=== PATIENT | female | born 1980 | race Caucasian/White ===

== ENCOUNTER 2022-09-20 15:18 | Outpatient (OUT) | payer BC, SELFPAY ==
--- NOTE | 2022-09-20 15:36 | XR_ITS ---
The [address] [address] Patient Name: ALFREDO WHALEY MRN: [id number] date: 1980 Sex: F Assigned Patient Location: [facility] Current Patient Location: [facility] Accession/Order Number: [id number] Exam Date: 09/20/2022 15:40 Report Date: 09/20/2022 16:52 At the request of: LUCY CARTER Procedure: XR shoulder RT min 2V PROCEDURE: XR shoulder RT min 2V HISTORY: Shoulder impingement M75.40 ; acute right shoulder pain for 2-3 weeks; no known injury COMPARISON: None. FINDINGS: BONES:No fracture, acute abnormality, or significant arthropathy. SOFT TISSUES:No visible soft tissue swelling. EFFUSION:None visible. OTHER: Negative. IMPRESSION: 1. No acute bone abnormality or significant degenerative changes. Electronically authenticated by: SANDRA CADET Date: 09/20/2022 16:52
== END 2022-09-20 15:19 ==
LOC: RAD 15:19
PROVIDERS: PCP Family Medicine; Visit Provider Family Medicine
DX: M75.41 Impingement syndrome of right shoulder (principal)
CPT/HCPCS: 73030

== ENCOUNTER 2022-09-25 16:14 | Outpatient (RCR) | payer BC, SELFPAY | END 2022-11-14 15:32 | disposition home or self-care (01) | LOC: PT 16:14 | PROVIDERS: PCP Family Medicine; Visit Provider Family Medicine | DX: M75.40 Impingement syndrome of unspecified shoulder (principal) | CPT/HCPCS: 97010; 97014; 97110; 97112; 97162; G0283 ==

== ENCOUNTER 2023-04-15 07:43 | Day surgery (SDC) | payer BC, SELFPAY ==
--- NOTE | 2023-04-15 07:49 | MR_ITS ---
[place] [id number] Patient Name: ALFREDO WHALEY MRN: [id number] date: 1980 Sex: F Assigned Patient Location: MRI Current Patient Location: MRI Accession/Order Number: [id number] Exam Date: 04/15/2023 08:46 Report Date: 04/15/2023 09:54 At the request of: LUCY CARTER Procedure: MR shoulder RT w con EXAMINATION: MR shoulder RT w con HISTORY: impingement of right shoulder M25.811 COMPARISON: No relevant comparison available. TECHNIQUE: A variety of imaging planes and parameters were utilized for visualization of suspected pathology. Images were performed without and with ml intravenous Dotarem. FINDINGS: ROTATOR CUFF REGION CUFF TENDONS: Mild to moderate increased signal intensity in the supraspinatus and subscapularis tendons indicates tendon degeneration and/or tendinitis. No dalia tear is seen. CUFF MUSCLES: Normal appearing muscles. DELTOID: Normal. No significant atrophy or tear. LONG BICEPS TENDON: Normal. No abnormal signal, attrition, or tear. LABRUM/BICEPS ANCHOR SUPERIOR: Normal. No visible labral tear or biceps anchor pathology. ANTERIOR/INFERIOR: Anterior labral tear with extravasation of contrast outside of the joint space POSTERIOR: Normal. No posterior labrum abnormality. CAPSULE ANTERIOR/INFERIOR: Normal. No visible capsular laxity or thickening. Type I origin of the middle glenohumeral ligament. POSTERIOR: Normal. No visible capsular laxity or thickening. AC JOINT REGION AC JOINT: Normal acromioclavicular joint. AC LIGAMENTS: Normal acromioclavicular ligament. CC LIGAMENTS: Normal coracoclavicular ligaments. ACROMION: Normal horizontal (Type I) configuration. SUBACROMIAL BURSA: Normal. No significant effusion. HYALINE CARTILAGE: Normal. No visible cartilage narrowing or focal defect. OTHER BONES: No acute fracture or dislocation. 11 x 6 mm area of bone edema anterior subcortical humeral head OTHER OBSERVATIONS: Negative. No other significant findings or glenohumeral effusion. MR/MR shoulder RT w con IMPRESSION: Anterior labral tear Mild to moderate supraspinatus and subscapularis tendinitis Electronically authenticated by: CHUYITA BOSS Date: 04/15/2023 09:54
--- NOTE | 2023-04-15 07:50 | FL_ITS ---
[address] [address] Patient Name: ALFREDO WHALEY MRN: [id number] date: 1980 Sex: F Assigned Patient Location: MRI Current Patient Location: MRI Accession/Order Number: [id number] Exam Date: 04/15/2023 08:20 Report Date: 04/15/2023 09:02 At the request of: LUCY CARTER Procedure: FL arthrogram shoulder EXAMINATION: FL arthrogram shoulder, FL guided needle placement HISTORY: impingement of right shoulder M25.811 COMPARISON: No relevant comparison available. TECHNIQUE: An arthrogram was performed under fluoroscopic guidance using non-ionic contrast material in the usual sterile manner after obtaining informed consent. Standard level fluoroscopic mode of operation utilized. FINDINGS: JOINT: NEEDLE: 25 gauge, 3.5 spinal needle. MEDICATION: 10 mL injected into joint space consisting of a mixture of 10 cc normal saline, 5 cc Omnipaque-300, 5 cc 1% Xylocaine, and 0.2 cc Dotarem. TECHNIQUE: Anterior approach under fluoroscopic guidance. COMPLICATIONS: None. BONES: No fracture, significant osseous degenerative changes, or visible bone lesion. BURSA: No visible extension of contrast into the subacromial-subdeltoid bursa at this time. OTHER: Negative. FL/FL arthrogram shoulder IMPRESSION: 1. Technically successful right shoulder arthrogram without complication. 2. Please see separate MRI report. Electronically authenticated by: CHUYITA BOSS Date: 04/15/2023 09:02
--- NOTE | 2023-04-15 07:51 | FL_ITS ---
[address] [address] Patient Name: ALFREDO WHALEY MRN: [id number] date: 1980 Sex: F Assigned Patient Location: MRI Current Patient Location: MRI Accession/Order Number: [id number] Exam Date: 04/15/2023 08:10 Report Date: 04/15/2023 09:02 At the request of: LUCY CARTER Procedure: FL guided needle placement EXAMINATION: FL arthrogram shoulder, FL guided needle placement HISTORY: impingement of right shoulder M25.811 COMPARISON: No relevant comparison available. TECHNIQUE: An arthrogram was performed under fluoroscopic guidance using non-ionic contrast material in the usual sterile manner after obtaining informed consent. Standard level fluoroscopic mode of operation utilized. FINDINGS: JOINT: NEEDLE: 25 gauge, 3.5 spinal needle. MEDICATION: 10 mL injected into joint space consisting of a mixture of 10 cc normal saline, 5 cc Omnipaque-300, 5 cc 1% Xylocaine, and 0.2 cc Dotarem. TECHNIQUE: Anterior approach under fluoroscopic guidance. COMPLICATIONS: None. BONES: No fracture, significant osseous degenerative changes, or visible bone lesion. BURSA: No visible extension of contrast into the subacromial-subdeltoid bursa at this time. OTHER: Negative. FL/FL guided needle placement IMPRESSION: 1. Technically successful right shoulder arthrogram without complication. 2. Please see separate MRI report. Electronically authenticated by: CHUYITA BOSS Date: 04/15/2023 09:02
[2023-04-15] MEDS: LIDOCAINE HCL 15 ML, SODIUM BICARBONATE 2 MEQ INJ (08:30)
--- NOTE | 2023-04-15 09:23 | SUR.PREOP ---
04/10/23 Pt instructed on date, time, prep, and procedure.
== END 2023-04-15 08:45 | disposition home or self-care (01) ==
LOC: MRI 07:43
PROVIDERS: Radiology Diagnostic Radiology; PCP Family Medicine; Visit Provider Family Medicine
DX: M25.811 Other specified joint disorders, right shoulder (principal); R53.83 Other fatigue; Z79.899 Other long term (current) drug therapy; E78.00 Pure hypercholesterolemia, unspecified; R73.09 Other abnormal glucose
CPT/HCPCS: 23350; 36415; 73222; 77002; 80053; 80061; 83036; 84439; 84443; 85025; A9575; Q9967

== ENCOUNTER 2023-04-15 08:47 | Outpatient (OUT) | payer BC, SELFPAY ==
[2023-04-15 09:59] LABS: Basophils Percent Auto 0.2 % (0.2-2.0); Eosinophils Absolute Auto 0.1 10^3/uL (0.0-0.7); Eosinophils Percent Auto 1.9 % (0.9-7.0); Hematocrit 39.7 % (36.0-48.0); Hemoglobin 12.5 g/dL (12.0-16.0); Immature Granulocytes Abs Auto 0.01 10^3/uL (0.00-0.03); Immature Granulocytes Pct Auto 0.2 % (0.0-0.5); Lymphocytes Absolute Auto 1.5 10^3/uL (1.2-3.8); Mean Corpuscular HGB Conc 31.5 g/dL (29.9-35.2); Mean Corpuscular Hemoglobin 25.1 pg (26.7-34.0); Mean Corpuscular Volume 79.6 fL (81.0-99.0); Mean Platelet Volume 9.6 fL (9.5-13.5); Monocytes Absolute Auto 0.3 10^3/uL (0.3-0.8); Monocytes Percent Auto 5.6 % (1.7-12.0); Neutrophils Absolute Auto 2.9 10^3/uL (1.4-6.5); Neutrophils Percent Auto 60.1 % (43.0-75.0); Platelet Count 283 10^3/uL (150-450); Red Blood Count 4.99 10^6/uL (4.20-5.40); Red Cell Distribution Width 17.2 % (11.0-15.0); White Blood Count 4.8 10^3/uL (4.0-11.0)
[2023-04-15 11:51] LABS: Free T4 0.65 ng/dL (0.76-1.46)
[2023-04-15 12:08] LABS: Estimated Average Glucose 108 mg/dL; Glycohemoglobin A1C 5.4 % (4.5-6.2)
[2023-04-15 12:29] LABS: Anion Gap 11.4; Carbon Dioxide 30.8 mmol/L (21.0-32.0); Chloride 100 mmol/L (98-107); Glucose 97 mg/dL (74-106); Potassium 4.2 mmol/L (3.5-5.1); Sodium 138 mmol/L (136-145)
[2023-04-15 12:30] LABS: Alanine Aminotransferase 24 U/L (14-59); Albumin Level 3.8 g/dL (3.4-5.0); Alkaline Phosphatase 59 U/L (46-116); Aspartate Amino Transferase 16 U/L (15-37); BUN Creatinine Ratio 18.4; Bilirubin Total 0.2 mg/dL (0.2-1.0); Calcium 9.3 mg/dL (8.5-10.1); Cholesterol 203 mg/dL (<=200); Estimated GFR (African America >60 (>=60); Estimated GFR (Non-African Ame >60 (>=60); Globulin 3.9 g/dL; HDL Cholesterol 78 mg/dL (40-60); Total Protein 7.7 g/dL (6.4-8.2); Triglycerides 49 mg/dL (<=150); VLDL CHOLESTEROL 9.8 mg/dL
[2023-04-15 12:31] LABS: Chol HDL Ratio 2.6; Thyroid Stimulating Hormone 2.267 uIU/mL (0.358-3.740)
--- OUTSIDE RECORDS SUMMARY | 2023-04-16 08:53 | XMS_ITS | CCD ---
Author Name Unknown Address [address] [place] [address] Organization [facility] Care Team Providers Care Solar Sales Consultant Name Role Phone EMMA, DR AYALA Admitting Unavailable HOY, DR AYALA Attending Unavailable HOY, DR AYALA Primary Care Unavailable HOY, DR AYALA Consulting Unavailable HOY, DR AYALA Primary Care Unavailable HOY, DR AYALA Admitting Unavailable HOY, DR AYALA Attending Unavailable HOY, DR AYALA Admitting Unavailable HOY, DR AYALA Attending Unavailable HOY, DR AYALA Primary Care Unavailable HOY, DR AYALA Consulting Unavailable ANALI, DR BOSE Admitting Unavailable ANALI, DR BOSE Attending Unavailable HOY, DR AYALA Primary Care Unavailable ANALI, DR BOSE Consulting Unavailable JESSA, AWAIS Admitting Unavailable JESSA, AWAIS Attending Unavailable EMMA, DR AYALA Primary Care Unavailable AWAIS GERMAIN Consulting Unavailable EMMA, DR AYALA Admitting Unavailable HOY, DR AYALA Attending Unavailable HOY, DR AYALA Primary Care Unavailable HOY, DR AYALA Consulting Unavailable ZIEBER, DR SANDRA Castellano Consulting Unavailable Problems Active Problems Problem Classification Problem Date Documented Da te Episodic/Chronic Acute bronchitis (1 source) Acute bronchitis, unspecified; Translations: [ACUTE BRONCHITIS UNSPECIFIED] Onset: 01-22-2022 Episodic Deficiency and other anemia (1 source) Anemia, unspecified; Translations: [ANEMIA UNSPECIFIED] Onset: 01-22-2022 Episodic Diabetes mellitus without complication (1 source) Other abnormal glucose; Translations: [OTHER ABNORMAL GLUCOSE] Onset: 01-22-2022 Episodic Other non-traumatic joint disorders (4 sources) Pain in right shoulder; Translations: [PAIN IN RIGHT SHOULDER] Onset: 01-18-2022 Episodic Thyroid disorders (4 sources) Hypothyroidism, unspecified; Translations: [HYPOTHYROIDISM UNSPECIFIED] Onset: 03-15-2022 Chronic Unclassified (3 sources) CONTACT W/AND (SUSP) EXPOS COVID-19; Translations: [CONTACT W/AND (SUSP) EXPOS COVID-19] Onset: 11-26-2021 Unclassified (1 source) COUGH, UNSPECIFIED; Translations: [COUGH, UNSPECIFIED] Onset: 11-26-2021 Viral infection (1 source) COVID-19; Translations: [COVID-19] Onset: 04-25-2021 Past or Other Problems Problem Classification Problem Date Documented Date Episodic/Chronic Immunizations and screening for infectious disease (1 source) Encounter for screening for human papillomavirus (HPV); Translations: [ENC SCREENING HUMAN PAPILLOMAVIRUS] Onset: 05-10-2021 Episodic Other screening for suspected conditions (not mental disorders or infectious disease) (4 sources) Encounter for screening for malignant neoplasm of cervix; Translations: [ENC SCREENING MALIG NEOPLASM CERV] Onset: 05-08-2021 Episodic Unclassified (1 source) CONTACT W/AND (SUSP) EXPOS COVID-19; Translations: [CONTACT W/AND (SUSP) EXPOS COVID-19] Onset: 11-23-2021 Results Test Name Value Interpretation Reference Range Facility FREE T3on 03-15-2022 FREE T3 2.55 pg/mlL Normal 2.18-3.98 [facility] Comment on above: Performed By: #### [id number] #### [facility] [address] [place] [address] Dr. Manuel Coffey T4on 03-15-2022 T4 [Mass/Vol] 6.80 ug/dL Normal 4.80-13.90 [facility] Comment on above: Performed By: #### [id number] #### [facility] [address] [place] [address] Dr. Manuel Coffey TSHon 03-15-2022 TSH 1.384 uIU/mL Normal 0.358-3.740 [facility] Comment on above: Performed By: #### [id number] #### [facility] [address] [place] [address] Dr. Manuel Coffey IMMUNOGLOBULINS IGA/IGM/IGG/ IGE QUANTITAon 01-25-2022 Immunoglobulin A, Qn, Serum 97 mg/dL Normal 87-352 [facility] Comment on above: Result Comment: Perf ormed at: CB Performed By: #### I MMUNGF #### [facility] [address] [place] [address] Dr. Manuel Coffey Immunoglobulin E, Total 7 IU/mL Normal 6-495 [facility] Comment on above: Result Comment: Perf ormed at: BN Performed By: #### I MMUNGF #### [facility] [address] [place] [address] Dr. Manuel Coffey Immunoglobulin G, Qn, Serum 1036 mg/dL Normal 586-1602 [facility] Comment on above: Result Comment: Perf ormed at: CB Performed By: #### I MMUNGF #### [facility] [address] [place] [address] Dr. Manuel Coffey Immunoglobulin M, Qn, Serum 116 mg/dL Normal 26-217 [facility] Comment on above: Result Comment: Perf ormed at: CB Performed By: #### I MMUNGF #### [facility] [address] [place] [address] Dr. Manuel Coffey MINA-MARTINEZ VIRUS (EBV) AB PROFILEon 01-21-2022 EBV Ab VCA, IgG >600.0 Critically high 0.0-17.9 [facility] Comment on above: Result Comment: Nega tive <18.0 Equivocal 18.0 - 21.9 Positive >21.9 Performed By: #### E BVPROF #### [facility] [address] [place] [address] Dr. Manuel Coffey EBV Ab VCA, IgM <36.0 Normal 0.0-35.9 [facility] Comment on above: Result Comment: Nega tive <36.0 Equivocal 36.0 - 43.9 Positive >43.9 Performed By: #### E BVPROF #### [facility] [address] [place] [address] Dr. Manuel Coffey EBV Nuclear Antigen Ab, IgG >600.0 Critically high 0.0-17.9 [facility] Comment on above: Result Comment: Nega tive <18.0 Equivocal 18.0 - 21.9 Positive >21.9 Performed By: #### E BVPROF #### [facility] [address] [place] [address] Dr. Manuel Coffey Interpretation: Comment Normal [facility] Comment on above: Result Comment: EBV Interpretation Chart [place]: Antibody Present + Antibody Absent - Interpretation VCA-IgM VCA-IgG EBNA-IgG . No previous infection/ - - - Susceptible Primary infection (new + + - or recent) Past Infection +or- + + See comment below* + - - *Results indicate infection with EBV at some time however cannot predict the timing of the infection since antibodies to EBNA usually develop after primary infection or, alternatively, approximately 5-10% of patients with EBV never develop antibodies to EBNA. Performed By: #### E BVPROF #### [facility] [address] [place] [address] Dr. Manuel Coffey INSULINon 01-19-2022 Insulin 7.3 uIU/mL Normal 2.6-24.9 [facility] Comment on above: Performed By: #### [id number] #### [facility] [address] [place] [address] Dr. Manuel Coffey CBC AUTO DIFFon 01-18-2022 BASO # 0.0 103/ul Normal 0.0-0.1 [facility] Comment on above: Performed By: #### C BC #### [facility] [address] [place] [address] Dr. Manuel Coffey Basophils/100 WBC (Bld) 0.2 % Normal 0.2-2.0 [facility] Comment on above: Performed By: #### C BC #### [facility] [address] [place] [address] Dr. Manuel Coffey EO # 0.2 103/ul Normal 0.0-0.7 [facility] Comment on above: Performed By: #### C BC #### [facility] [address] [place] [address] Dr. Manuel Coffey Eosinophils/100 WBC (Bld) 3.0 % Normal 0.9-7.0 [facility] Comment on above: Performed By: #### C BC #### [facility] [address] [place] [address] Dr. Manuel Coffey Erythrocyte distribution width (RBC) [Ratio] 13.2 % Normal 11.0-15.0 [facility] Comment on above: Performed By: #### C BC #### [facility] [address] [place] [address] Dr. Manuel Coffey Hematocrit (Bld) [Volume fraction] 39.0 % Normal 36.0-48.0 [facility] Comment on above: Performed By: #### C BC #### [facility] [address] [place] [address] Dr. Manuel Coffey Hemoglobin (Bld) [Mass/Vol] 12.7 g/dL Normal 12.0-16.0 [facility] Comment on above: Performed By: #### C BC #### [facility] [address] [place] [address] Dr. Manuel Coffey IG # 0.01 10e3/ul Normal 0.00-0.03 [facility] Comment on above: Performed By: #### C BC #### [facility] [address] [place] [address] Dr. Manuel Coffey IG % 0.2 % Normal 0.0-0.5 [facility] Comment on above: Performed By: #### C BC #### [facility] [address] [place] [address] Dr. Manuel Coffey LYMPH # 1.4 103/ul Normal 1.2-3.8 [facility] Comment on above: Performed By: #### C BC #### [facility] [address] [place] [address] Dr. Manuel Coffey Lymphocytes/100 WBC (Bld) 28.5 % Normal 20.5-60.0 [facility] Comment on above: Performed By: #### C BC #### [facility] [address] [place] [address] Dr. Manuel Coffey MANUAL DIFF REQ NO Normal [facility] Comment on above: Performed By: #### C BC #### [facility] [address] [place] [address] Dr. Manuel Coffey MCH (RBC) [Entitic mass] 27.2 pg Normal 26.7-34.0 [facility] Comment on above: Performed By: #### C BC #### [facility] [address] [place] [address] Dr. Manuel Coffey MCHC (RBC) [Mass/Vol] 32.6 g/dL Normal 29.9-35.2 [facility] Comment on above: Performed By: #### C BC #### [facility] [address] [place] [address] Dr. Manuel Coffey MCV (RBC) [Entitic vol] 83.5 fL Normal 81.0-99.0 [facility] Comment on above: Performed By: #### C BC #### [facility] [address] [place] [address] Dr. Manuel Coffey MONO # 0.3 103/ul Normal 0.3-0.8 [facility] Comment on above: Performed By: #### C BC #### [facility] [address] [place] [address] Dr. Manuel Coffey Monocytes/100 WBC (Bld) 5.9 % Normal 1.7-12.0 [facility] Comment on above: Performed By: #### C BC #### [facility] [address] [place] [address] Dr. Manuel Coffey NEUT # 3.1 103/ul Normal 1.4-6.5 [facility] Comment on above: Performed By: #### C BC #### [facility] [address] [place] [address] Dr. Manuel Coffey Neutrophils/100 WBC (Bld) 62.2 % Normal 43.0-75.0 [facility] Comment on above: Performed By: #### C BC #### [facility] [address] [place] [address] Dr. Manuel Coffey Platelet mean volume (Bld) [Entitic vol] 9.5 fL Normal 9.5-13.5 [facility] Comment on above: Performed By: #### C BC #### [facility] [address] [place] [address] Dr. Manuel Coffey PLT 262 103/ul Normal 150-450 [facility] Comment on above: Performed By: #### C BC #### [facility] [address] [address] [address] Manuel Coffey RBC 4.67 106/ul Normal 4.20-5.40 [facility] Comment on above: Performed By: #### C BC #### [facility] [address] [place] [address] Dr. Manuel Coffey WBC 4.9 103/ul Normal 4.0-11.0 [facility] Comment on above: Performed By: #### C BC #### [facility] [address] [place] [address] Dr. Manuel Coffey FREE THYROXINE INDEX T7on FTI 2.15 Normal 1.30-4.50 [facility] Comment on above: Performed By: #### T SH, LIPID, T7, CMP #### [facility] [address] [place] [address] Dr. Manuel Coffey T3U 29.0 % Critically low 30.0-39.0 [facility] Comment on above: Performed By: #### T SH, LIPID, T7, CMP #### [facility] [address] [place] [address] Dr. Manuel Coffey T4 [Mass/Vol] 7.40 ug/dL Normal 4.80-13.90 [facility] Comment on above: Performed By: #### T SH, LIPID, T7, CMP #### [facility] [address] [place] [address] Dr. Manuel Coffey GLYCOHEMOGLOBIN A1Con 2021 ADA RECOMMENDATION SEE BELOW Normal [facility] Comment on above: Result Comment: ADA RECOMMENDED LIMIT 4.0 - 6.0 ADA THERAPEUTIC TARGET < 7.0 ACTION SUGGESTED > 7.0 Performed By: #### A 1C #### [facility] [address] [place] [address] Dr. Manuel Coffey Glucose [Mass/Vol] 103 mg/dL Normal [facility] Comment on above: Performed By: #### A 1C #### [facility] [address] [address] [address] Manuel Coffey HbA1c (Bld) [Mass fraction] 5.2 % Normal 4.5-6.2 [facility] Comment on above: Performed By: #### A 1C #### [facility] [address] [place] [address] Dr. Manuel Coffey IRONon 01-18-2022 Iron [Mass/Vol] 50.0 ug/dL Normal 50.0-170.0 [facility] Comment on above: Performed By: #### [id number] #### [facility] [address] [place] [address] Dr. Manuel Coffey LIPID PROFILEon 01-18-2022 CHOL-HDL RATIO NORM SEE BELOW Normal [facility] Comment on above: Result Comment: 3.3 - 4.4 LOW RISK 4.4 - 7.1 AVERAGE RISK 7.1 - 11.0 MODERATE RISK >11.0 HIGH RISK Performed By: #### T SH, LIPID, T7, CMP #### [facility] [address] [place] [address] Dr. Manuel Coffey Cholesterol [Mass/Vol] 189 mg/dL Normal <=200 [facility] Comment on above: Performed By: #### T SH, LIPID, T7, CMP #### [facility] [address] [place] [address] Dr. Manuel Coffey Cholesterol in HDL [Mass/Vol] 75 mg/dL Critically high 40-60 [facility] Comment on above: Performed By: #### T SH, LIPID, T7, CMP #### [facility] [address] [place] [address] Dr. Manuel Coffey Cholesterol in LDL [Mass/Vol] 103.6 mg/dL Normal [facility] Comment on above: Performed By: #### T SH, LIPID, T7, CMP #### [facility] [address] [place] [address] Dr. Manuel Coffey Cholesterol.total/Ch olesterol in HDL [Mass ratio] 2.5 {ratio} Normal [facility] Comment on above: Performed By: #### T SH, LIPID, T7, CMP #### [facility] [address] [address] [address] Manuel Coffey HDL NORMAL > or = 60 mg/dl - LO W CARDIOVASCULAR RISK <40 mg/dl - HIGH CARDIOVASCULAR RISK Normal [facility] Comment on above: Performed By: #### T SH, LIPID, T7, CMP #### [facility] [address] [address] [address] Manuel Coffey LDL CALC NORMAL SEE BELOW Normal [facility] Comment on above: Result Comment: <100 mg/dl OPTIMAL 100 - 129 mg/dl NEAR OR ABOVE OPTIMAL 130 - 159 mg/dl BORDERLINE HIGH 160 - 189 mg/dl HIGH >190 mg/dl VERY HIGH Performed By: #### T SH, LIPID, T7, CMP #### [facility] [address] [address] [address] Manuel Coffey Triglyceride [Mass/Vol] 52 mg/dL Normal <=150 [facility] Comment on above: Performed By: #### T SH, LIPID, T7, CMP #### [facility] [address] [address] [address] Manuel Coffey VLDL CALC 10.4 mg/dL Normal [facility] Comment on above: Performed By: #### T SH, LIPID, T7, CMP #### [facility] [address] [address] [address] Manuel Coffey PROF 14(COMP METB)on 022 Albumin [Mass/Vol] 3.9 g/dL Normal 3.4-5.0 [facility] Comment on above: Performed By: #### T SH, LIPID, T7, CMP #### [facility] [address] [place] [address] Dr. Manuel Coffey Albumin/Globulin [Mass ratio] 1.1 {ratio} Normal [facility] Comment on above: Performed By: #### T SH, LIPID, T7, CMP #### [facility] [address] [place] [address] Dr. Manuel Coffey ALP [Catalytic activity/Vol] 61 U/L Normal 46-116 [facility] Comment on above: Performed By: #### T SH, LIPID, T7, CMP #### [facility] [address] [address] [address] Manuel Coffey ALT [Catalytic activity/Vol] 21 U/L Normal 14-59 [facility] Comment on above: Performed By: #### T SH, LIPID, T7, CMP #### [facility] [address] [address] [address] Manuel Coffey Anion gap [Moles/Vol] 5.2 mmol/L Normal [facility] Comment on above: Performed By: #### T SH, LIPID, T7, CMP #### [facility] [address] [address] [address] Manuel Coffey AST [Catalytic activity/Vol] 13 U/L Critically low 15-37 [facility] Comment on above: Performed By: #### T SH, LIPID, T7, CMP #### [facility] [address] [address] [address] Manuel Coffey Bilirubin [Mass/Vol] 0.3 mg/dL Normal 0.2-1.0 [facility] Comment on above: Performed By: #### T SH, LIPID, T7, CMP #### [facility] [address] [address] [address] Manuel Coffey Calcium [Mass/Vol] 9.1 mg/dL Normal 8.5-10.1 [facility] Comment on above: Performed By: #### T SH, LIPID, T7, CMP #### [facility] [address] [address] [address] Manuel Coffey Chloride [Moles/Vol] 102 mmol/L Normal 98-107 [facility] Comment on above: Performed By: #### T SH, LIPID, T7, CMP #### [facility] [address] [address] [address] Manule Coffey CO2 [Moles/Vol] 33.4 mmol/L Critically high 21.0-32.0 [facility] Comment on above: Performed By: #### T SH, LIPID, T7, CMP #### [facility] [address] [address] [address] Manuel Coffey Creatinine [Mass/Vol] 0.73 mg/dL Normal 0.55-1.02 [facility] Comment on above: Performed By: #### T SH, LIPID, T7, CMP #### [facility] [address] [place] [address] Dr. Manuel Coffey EGFR-AF NEW ZEALANDER >60 Normal >=60 [facility] Comment on above: Performed By: #### T SH, LIPID, T7, CMP #### [facility] [address] [place] [address] Dr. Manuel Coffey EGFR-NON AF [place]EALANDER >60 Normal >=60 [facility] Comment on above: Performed By: #### T SH, LIPID, T7, CMP #### [facility] [address] [place] [address] Dr. Manuel Coffey Globulin (S) [Mass/Vol] 3.7 g/dL Normal [facility] Comment on above: Performed By: #### T SH, LIPID, T7, CMP #### [facility] [address] [place] [address] Dr. Manuel Coffey Glucose [Mass/Vol] 95 mg/dL Normal 74-106 [facility] Comment on above: Performed By: #### T SH, LIPID, T7, CMP #### [facility] [address] [place] [address] Dr. Manuel Coffey Potassium [Moles/Vol] 4.6 mmol/L Normal 3.5-5.1 [facility] Comment on above: Performed By: #### T SH, LIPID, T7, CMP #### [facility] [address] [place] [address] Dr. Manuel Coffey Protein [Mass/Vol] 7.6 g/dL Normal 6.4-8.2 [facility] Comment on above: Performed By: #### T SH, LIPID, T7, CMP #### [facility] [address] [place] [address] Dr. Manuel Coffey Sodium [Moles/Vol] 136 mmol/L Normal 136-145 [facility] Comment on above: Performed By: #### T SH, LIPID, T7, CMP #### [facility] [address] [place] [address] Dr. Manuel Coffey Urea nitrogen [Mass/Vol] 8.0 mg/dL Normal 7.0-18.0 [facility] Comment on above: Performed By: #### T SH, LIPID, T7, CMP #### [facility] [address] [address] [address] Manuel Coffey Urea nitrogen/Creatinine [Mass ratio] 11.0 mg/mg Normal [facility] Comment on above: Performed By: #### T SH, LIPID, T7, CMP #### [facility] [address] [address] [address] Manuel Coffey TSHon 01-18-2022 TSH 4.105 uIU/mL Critically high 0.358-3.740 [facility] Comment on above: Performed By: #### T SH, LIPID, T7, CMP #### [facility] [address] [place] [address] Dr. Manuel Coffey Covid-19 PCR ([facility])on 11-12 SARS-CoV-2 (COVID-19) RNA SHERRELL+probe Ql (Unsp spec) Not detected Normal NOT DETECTED [facility] Comment on above: Result Comment: This test is not yet approved or cleared by the [place] FDA. When there are no FDA-approved or cleared tests available, and other criteria are met, FDA can make tests available under an emergency access mechanism called an Emergency Use Authorization (EUA). The EUA for this test is supported by the [place] of Health and Human Service's (HHS's) declaration that circumstances exist to justify the emergency use of in vitro diagnostics for the detection and/or diagnosis of the virus that causes COVID-19. This EUA will remain in effect (meaning this test can be used) for the duration of the COVID-19 declaration justifying emergency of IVDs, unless it is terminated or revoked by FDA (after which the test may no longer be used). When diagnostic testing is negative, the possibility of a false negative should be considered in the context of a patient's recent exposures and the presence of clinical signs and symptoms consistent with SARS-CoV-2. Performed By: #### 4 [id number] #### [facility] [address] [place] [address] Dr. Manuel Coffey PAP ACOG PANEL 2: 30 to 65on 05-12-2021 . . Normal [facility] Comment on above: Result Comment: Perf ormed at: WB Performed By: #### [id number] #### [facility] [address] [place] [address] Dr. Manuel Coffey Age Gdln ACOG Testing 30-65 [facility] Comment on above: Performed By: #### [id number] #### [facility] [address] [place] [address] Dr. Manuel Coffey DIAGNOSIS: Comment [facility] Comment on above: Result Comment: NEGA TIVE FOR INTRAEPITHELIAL LESION OR MALIGNANCY. Performed at: WB Performed By: #### [id number] #### [facility] [address] [place] [address] Dr. Manuel Coffey HPV Aptima Negative Normal Negative [facility] Comment on above: Result Comment: This nucleic acid amplification test detects fourteen high-risk HPV types (16,18,31,33,35,39,45,51,52,56,58,59,66,68) without differentiation. Performed at: =G Performed By: #### [id number] #### [facility] [address] [place] [address] Dr. Manuel Coffey Methodology: Comment [facility] Comment on above: Result Comment: This liquid based ThinPrep(R) pap test was screened with the use of an image guided system. Performed at: WB Performed By: #### [id number] #### [facility] [address] [place] [address] Dr. Manuel Coffey Note: Comment Normal [facility] Comment on above: Result Comment: The Pap smear is a screening test designed to aid in the detection of premalignant and malignant conditions of the uterine cervix. It is not a diagnostic procedure and should not be used as the sole means of detecting cervical cancer. Both false-positive and false-negative reports do occur. . Performed at: WB Performed By: [id number] #### [facility] [address] [place] [address] Dr. Manuel Coffey Performed by: Comment Normal [facility] Comment on above: Result Comment: Katrina Fuller, Professor Of Chemistry (ASCP) Performed at: WB Performed By: #### [id number] #### [facility] [address] [address] [address] Manuel Coffey Specimen adequacy: Comment Normal [facility] Comment on above: Result Comment: Sati sfactory for evaluation. Endocervical and/or squamous metaplastic cells (endocervical component) are present. Performed at: WB Performed By: #### [id number] #### [facility] [address] [address] [address] Manuel Coffey Covid-19 PCR ([facility])on SARS-CoV-2 (COVID-19) RNA SHERRELL+probe Ql (Unsp spec) Detected Critically abnormal NOT DETECTED [facility] Comment on above: Result Comment: This test is not yet approved or cleared by the [place] FDA. When there are no FDA-approved or cleared tests available, and other criteria are met, FDA can make tests available under an emergency access mechanism called an Emergency Use Authorization (EUA). The EUA for this test is supported by the [place] of Health and Human Service's (HHS's) declaration that circumstances exist to justify the emergency use of in vitro diagnostics for the detection and/or diagnosis of the virus that causes COVID-19. This EUA will remain in effect (meaning this test can be used) for the duration of the COVID-19 declaration justifying emergency of IVDs, unless it is terminated or revoked by FDA (after which the test may no longer be used). Performed By: #### [id number] #### [facility] [address] [place] [address] Dr. Manuel Coffey INFLUENZA A AND B AGon 04-18 INFLUANEGH SEE BELOW Normal [facility] Comment on above: Result Comment: Nega tive for Flu A protein angiten. Infection due to Flu A cannot be ruled out. Flu A angiten in the sample may be below the detection limit of the test. Performed By: #### I NFLUAB #### [facility] [address] [place], [place] [id number] Dr. [facility] Normal [facility] Comment on above: Result Comment: Nega tive for Flu B protein antigen. Infection due to Flu B cannot be ruled out. Flu B antigen in the sample may be below the detection limit of the test. Performed By: #### I NFLUAB #### [facility] [address] [place] [address] Dr. Manuel Coffey INFLUENZA A AG Negative Normal NEGATIVE SEE COMMENT [facility] Comment on above: Performed By: #### I NFLUAB #### [facility] [address] [place] [address] Dr. Manuel Coffey INFLUENZA B AG Negative Normal NEGATIVE SEE COMMENT [facility] Comment on above: Performed By: #### I NFLUAB #### [facility] [address] [place] [address] Dr. Manuel Coffey INTERNAL CONTROLS Within Normal Limits Normal Wi thin Normal Limits [facility] Comment on above: Performed By: #### I NFLUAB #### [facility] [address] [place] [address] Dr. Manuel Coffey Patient Letter FTon 2019 Patient Letter [facility] November 18, 2019 ALFR[address] [place] [address] ALFREDO WHALEY 1980 Dear Alfredo, This is a SECOND ATTEMPT to remind you that you are due for an appointment with Dr. Brand or Dr. Wilks. Please call [facility] at [phone] to schedule an appointment at your earliest convenience. Thank you, [facility] Reminderson 11-18-2019 Reminders - From: Akshat Cardoso To: [facility] - Reminders/Recalls; Sent: 06/10/2019 11:15:40 EST Show up: 10/13/2019 11:15:00 EDT Subject: 6 month recall November 2019 Due Date/Time: 10/17/2019 11:15:00 EDT Reminder/Recall Dr. Brand 6 month f/u 12/09/2019 First Recall Letter Second recall Letter [facility] Reminderson 03-15-2019 Reminders - From: Arely Sand HaulerAlfredo To: YASMINE - Reminders/Recalls; Sent: 12/25/2018 13:40:20 EDT Show up: 03/14/2019 13:40:00 EST Subject: 2019 RECALL Due Date/Time: 05/13/2019 13:40:00 EST Reminder/Recall FOLLOW UP [address] BRAND DUE: 05/13/2019 pt coming in frimar 17 [facility] Encounters Encounter Date Encounter Type Care Provider Facility Start: 03-15-2022 End: 03-16-[address] LUCY CARTER Facility:[facility] Start: 01-18-2022 End: 01-19-[address] LUCY CARTER Facility:[facility] Start: 11-23-2021 End: 11-23-2021 ambulatory AWAIS GERMAIN Facility:[facility] Start: 05-08-2021 End: 05-08-[address] JUICE BRIONES Facility:[facility] Start: 04-18-2021 End: 04-18-[address] LUCY CARTER Facility:[facility] Start: 04-18-[address] LUCY CARTER Facility :[facility] Payers Date Payer Category Payer Unknown [id number] [id number]. [id number] 1980 Unknown [id number] 05.30.84 [id number] 1980 Unknown [id number] 05.30.84 [id number] 1980 Unknown [id number] 1980 Unknown [id number] 1980 Unknown [id number] 05.30.84 [id number] 1957 Unknown [id number] Clinical Note 01-18-2022 Note Date & Type Note Facility 01-18-2022 Note PROCEDURE: XR SHOULD ER RT 2V or > HISTORY: Pain of right shoulder joint COMPARISON: None. FINDINGS: BONES:No fracture, acute abnormality, or significant arthropathy. SOFT TISSUES:No visible soft tissue swelling. EFFUSION:None visible. OTHER: Negative. IMPRESSION: 1. No acute bone abnormality or significant degenerative changes. Electronically authenticated by: SANDRA CADET Date: 2022-01-18 11:19 [facility] Summary Purpose Family History No Family History Records FoundNo Family History Records Found Advance Directives No Advanced Directives Records FoundNo Advanced Directives Records Found Additional Source Comments INFORMATION SOURCE (unrecogn ized section and content) DATE CREATED AUTHOR 11/19/2019 [facility] DATE CREATED AUTHOR AUTHOR'S ORGANIZ ATION 03/23/[address] [facility] FOR RECORDS PERTAINING TO PATIENTS WHO ARE OR HAVE BEEN ENROLLED IN A CHEMICAL DEPENDENCY/SUBSTANCEABUSE PROGRAM, SOME INFORMATION MAY BE OMITTED. This clinical summary was aggregated from multiple sources. Caution should be exercised in using it in the provision of clinical care. This summary normalizes information from multiple sources, and as a consequence, information in this document may materially change the coding, format and clinical context of patient data. In addition, data may be omitted in some cases. CLINICAL DECISIONS SHOULD BE BASED ON THE PRIMARY CLINICAL RECORDS. [facility]. provides no warranty or guarantee of the accuracy or completeness of information in this document.
== END 2023-04-15 08:48 | disposition home or self-care (01) ==
LOC: LAB 04-16 08:47
PROVIDERS: PCP Family Medicine; Visit Provider Family Medicine
DX: R53.83 Other fatigue (principal); Z79.899 Other long term (current) drug therapy; E78.00 Pure hypercholesterolemia, unspecified; R73.09 Other abnormal glucose
CPT/HCPCS: 36415; 80053; 80061; 83036; 84439; 84443; 85025

== ENCOUNTER 2023-06-18 11:05 | Outpatient (OUT) | payer BC, SELFPAY ==
--- OUTSIDE RECORDS SUMMARY | 2023-06-18 11:09 | XMS_ITS | CCD ---
Author Name Unknown Address [address] [place] [address] Organization [facility] Care Team Providers Care Coffee [employer] Manager Name Role Phone EMMA, DR AYALA Admitting [...] [employer] Unavailable JESSA, AWAIS Admitting Unavailable JESSAAWAIS Attending Unavailable EMMA, DR AYALA Primary Care [...] 03-15-2022 FREE T3 2.55 pg/mlL Normal 2.18-3.98 [facility] Comment on above: Performed By: #### [id number] #### [facility] [address] [place] [address] Dr. Manuel Coffey T4on 03-15-2022 T4 [Mass/Vol] 6.80 ug/dL Normal 4.80-13.90 [facility] Comment on above: Performed By: #### [id number] #### [facility] [address] [place] [address] Dr. Manuel Coffey TSHon 03-15-2022 TSH 1.384 uIU/mL Normal 0.358-3.740 [facility] Comment on above: Performed By: #### [id number] #### [facility] [address] [place] [address] Dr. Manuel Coffey IMMUNOGLOBULINS IGA/IGM/IGG/ IGE QUANTITAon 01-25-2022 Immunoglobulin A, Qn, Serum 97 mg/dL Normal 87-[address] [facility] Comment on above: Result Comment: Perf ormed at: CB Performed By: #### I MMUNGF #### [facility] [address] [place] [address] Dr. Manuel Coffey Immunoglobulin E, Total 7 IU/mL Normal 6-495 [facility] Comment on above: Result Comment: Perf ormed at: BN Performed By: #### I MMUNGF #### [facility] [address] [place] [address] Dr. Manuel Coffey Immunoglobulin G, Qn, Serum 1036 mg/dL Normal 586-1602 [facility] Comment on above: Result Comment: Perf ormed at: CB Performed By: #### I MMUNGF #### [facility] [address] [place] [address] Dr. Manuel Coffey Immunoglobulin M, Qn, Serum 116 mg/dL Normal 26-217 [facility] Comment on above: Result Comment: Perf ormed at: CB Performed By: #### I MMUNGF #### [facility] [address] [place] [address] Dr. Manuel Coffey MINA-MARTINEZ VIRUS (EBV) AB PROFILEon 01-21-2022 EBV Ab VCA, IgG >600.0 Critically high 0.0-17.9 [facility] Comment on above: Result Comment: Nega tive <18.0 Equivocal 18.0 - 21.9 Positive >21.9 Performed By: #### E BVPROF #### [facility] [address] [place] [address] Dr. Manuel Coffey EBV Ab VCA, IgM <36.0 Normal 0.0-35.9 [facility] Comment on above: Result Comment: Nega tive <36.0 Equivocal 36.0 - 43.9 Positive >43.9 Performed By: #### E BVPROF #### [facility] [address] [place] [address] Dr. Manuel Coffey EBV Nuclear Antigen Ab, IgG >600.0 Critically high 0.0-17.9 [facility] Comment on above: Result Comment: Nega tive <18.0 Equivocal 18.0 - 21.9 Positive >21.9 Performed By: #### E BVPROF #### [facility] [address] [place] [address] Dr. Manuel Coffey Interpretation: Comment Normal [facility] Comment on above: Result Comment: EBV Interpretation [...] EBNA. Performed By: #### E BVPROF #### [facility] [address] [place] [address] Dr. Manuel Coffey INSULINon 01-19-2022 Insulin 7.3 uIU/mL Normal 2.6-24.9 [facility] Comment on above: Performed By: #### [id number] #### [facility] [address] [place] [address] Dr. Manuel Coffey CBC AUTO DIFFon 01-18-2022 BASO # 0.0 103/ul Normal 0.0-0.1 [facility] Comment on above: Performed By: #### C BC #### [facility] [address] [place] [address] Dr. Manuel Coffey Basophils/100 WBC (Bld) 0.2 % Normal 0.2-2.0 [facility] Comment on above: Performed By: #### C BC #### [facility] [address] [place] [address] Dr. Manuel Coffey EO # 0.2 103/ul Normal 0.0-0.[address] [facility] Comment on above: Performed By: #### C BC #### [facility] [address] [place] [address] Dr. Manuel Coffey Eosinophils/100 WBC (Bld) 3.0 % Normal 0.9-7.[address] [facility] Comment on above: Performed By: #### C BC #### [facility] [address] [place] [address] Dr. Manuel Coffey Erythrocyte distribution width (RBC) [Ratio] 13.2 % Normal 11.0-15.0 [facility] Comment on above: Performed By: #### C BC #### [facility] [address] [place] [address] Dr. Manuel Coffey Hematocrit (Bld) [Volume fraction] 39.0 % Normal 36.0-48.0 [facility] Comment on above: Performed By: #### C BC #### [facility] [address] [place] [address] Dr. Manuel Coffey Hemoglobin (Bld) [Mass/Vol] 12.7 g/dL Normal 12.0-16.0 [facility] Comment on above: Performed By: #### C BC #### [facility] [address] [place] [address] Dr. Manuel Coffey IG # 0.01 10e3/ul Normal 0.00-0.03 [facility] Comment on above: Performed By: #### C BC #### [facility] [address] [place] [address] Dr. Manuel Coffey IG % 0.2 % Normal 0.0-0.5 [facility] Comment on above: Performed By: #### C BC #### [facility] [address] [place] [address] Dr. Manuel Coffey LYMPH # 1.4 103/ul Normal 1.2-3.8 [facility] Comment on above: Performed By: #### C BC #### [facility] [address] [place] [address] Dr. Manuel Coffey Lymphocytes/100 WBC (Bld) 28.5 % Normal 20.5-60.0 [facility] Comment on above: Performed By: #### C BC #### [facility] [address] [place] [address] Dr. Manuel Coffey MANUAL DIFF REQ NO Normal [facility] Comment on above: Performed By: #### C BC #### [facility] [address] [place] [address] Dr. Manuel Coffey MCH (RBC) [Entitic mass] 27.2 pg Normal 26.7-34.0 [facility] Comment on above: Performed By: #### C BC #### [facility] [address] [place] [address] Dr. Manuel Coffey MCHC (RBC) [Mass/Vol] 32.6 g/dL Normal 29.9-35.2 [facility] Comment on above: Performed By: #### C BC #### [facility] [address] [place] [address] Dr. Manuel Coffey MCV (RBC) [Entitic vol] 83.5 fL Normal 81.0-99.0 [facility] Comment on above: Performed By: #### C BC #### [facility] [address] [place] [address] Dr. Manuel Coffey MONO # 0.3 103/ul Normal 0.3-0.[address] [facility] Comment on above: Performed By: #### C BC #### [facility] [address] [place] [address] Dr. Manuel Coffey Monocytes/100 WBC (Bld) 5.9 % Normal 1.7-12.0 [facility] Comment on above: Performed By: #### C BC #### [facility] [address] [place] [address] Dr. Manuel Coffey NEUT # 3.1 103/ul Normal 1.4-6.[address] [facility] Comment on above: Performed By: #### C BC #### [facility] [address] [place] [address] Dr. Manuel Coffey Neutrophils/100 WBC (Bld) 62.2 % Normal 43.0-75.[address] [facility] Comment on above: Performed By: #### C BC #### [facility] [address] [place] [address] Dr. Manuel Coffey Platelet mean volume (Bld) [Entitic vol] 9.5 fL Normal 9.5-13.[address] [facility] Comment on above: Performed By: #### C BC #### [facility] [address] [place] [address] Dr. Manuel Coffey PLT 262 103/ul Normal 150-450 [facility] Comment on above: Performed By: #### C BC #### [facility] [address] [address] [address] Manuel Coffey RBC 4.67 106/ul Normal 4.20-5.40 [facility] Comment on above: Performed By: #### C BC #### [facility] [address] [place] [address] Dr. Manuel Coffey WBC 4.9 103/ul Normal 4.0-11.0 [facility] Comment on above: Performed By: #### C BC #### [facility] [address] [place] [address] Dr. Manuel Coffey FREE THYROXINE INDEX T7on FTI 2.15 Normal 1.30-4.50 [facility] Comment on above: Performed By: #### T SH, LIPID, T7, CMP #### [facility] [address] [place] [address] Dr. Manuel Coffey T3U 29.0 % Critically low 30.0-39.0 [facility] Comment on above: Performed By: #### T SH, LIPID, T7, CMP #### [facility] [address] [place] [address] Dr. Manuel Coffey T4 [Mass/Vol] 7.40 ug/dL Normal 4.80-13.90 [facility] Comment on above: Performed By: #### T SH, LIPID, T7, CMP #### [facility] [address] [place] [address] Dr. Manuel Coffey GLYCOHEMOGLOBIN A1Con 2021 ADA RECOMMENDATION SEE BELOW Normal [facility] Comment on above: Result Comment: ADA RECOMMENDED LIMIT 4.0 - 6.0 ADA THERAPEUTIC TARGET < 7.0 ACTION SUGGESTED > 7.0 Performed By: #### A 1C #### [facility] [address] [place] [address] Dr. Manuel Coffey Glucose [Mass/Vol] 103 mg/dL Normal [facility] Comment on above: Performed By: #### A 1C #### [facility] [address] [address] [address] Manuel Coffey HbA1c (Bld) [Mass fraction] 5.2 % Normal 4.5-6.2 [facility] Comment on above: Performed By: #### A 1C #### [facility] [address] [place] [address] Dr. Manuel Coffey IRONon 01-18-2022 Iron [Mass/Vol] 50.0 ug/dL Normal 50.0-170.0 [facility] Comment on above: Performed By: #### 4 [id number] #### [facility] [address] [place] [address] Dr. Manuel Coffey LIPID PROFILEon 01-18-2022 CHOL-HDL RATIO NORM SEE BELOW Normal [facility] Comment on above: Result Comment: 3.3 - 4.4 LOW RISK 4.4 - 7.1 AVERAGE RISK 7.1 - 11.0 MODERATE RISK >11.0 HIGH RISK Performed By: #### T SH, LIPID, T7, CMP #### [facility] [address] [place] [address] Dr. Manuel Coffey Cholesterol [Mass/Vol] 189 mg/dL Normal <=200 [facility] Comment on above: Performed By: #### T SH, LIPID, T7, CMP #### [facility] [address] [place] [address] Dr. Manuel Coffey Cholesterol in HDL [Mass/Vol] 75 mg/dL Critically high 40-60 [facility] Comment on above: Performed By: #### T SH, LIPID, T7, CMP #### [facility] [address] [place] [address] Dr. Manuel Coffey Cholesterol in LDL [Mass/Vol] 103.6 mg/dL Normal [facility] Comment on above: Performed By: #### T SH, LIPID, T7, CMP #### [facility] [address] [place] [address] Dr. Manuel Coffey Cholesterol.total/Ch olesterol in HDL [Mass ratio] 2.5 {ratio} Normal [facility] Comment on above: Performed By: #### T SH, LIPID, T7, CMP #### [facility] [address] [address] [address] Manuel Coffey HDL NORMAL > or = 60 mg/dl - LO W CARDIOVASCULAR RISK <40 mg/dl - HIGH CARDIOVASCULAR RISK Normal [facility] Comment on above: Performed By: #### T SH, LIPID, T7, CMP #### [facility] [address] [address] [address] Manuel Coffey LDL CALC NORMAL SEE BELOW Normal [facility] Comment on above: Result Comment: <100 mg/dl OPTIMAL 100 - 129 mg/dl NEAR OR ABOVE OPTIMAL 130 - 159 mg/dl BORDERLINE HIGH 160 - 189 mg/dl HIGH >190 mg/dl VERY HIGH Performed By: #### T SH, LIPID, T7, CMP #### [facility] [address] [address] [address] Manuel Coffey Triglyceride [Mass/Vol] 52 mg/dL Normal <=150 [facility] Comment on above: Performed By: #### T SH, LIPID, T7, CMP #### [facility] [address] [address] [address] Manuel Coffey VLDL CALC 10.4 mg/dL Normal [facility] Comment on above: Performed By: #### T SH, LIPID, T7, CMP #### [facility] [address] [address] [address] Manuel Coffey PROF 14(COMP METB)on 022 Albumin [Mass/Vol] 3.9 g/dL Normal 3.4-5.0 [facility] Comment on above: Performed By: #### T SH, LIPID, T7, CMP #### [facility] [address] [place] [address] Dr. Manuel Coffey Albumin/Globulin [Mass ratio] 1.1 {ratio} Normal [facility] Comment on above: Performed By: #### T SH, LIPID, T7, CMP #### [facility] [address] [place] [address] Dr. Manuel Coffey ALP [Catalytic activity/Vol] 61 U/L Normal 46-116 [facility] Comment on above: Performed By: #### T SH, LIPID, T7, CMP #### [facility] [address] [address] [address] Manuel Coffey ALT [Catalytic activity/Vol] 21 U/L Normal 14-59 [facility] Comment on above: Performed By: #### T SH, LIPID, T7, CMP #### [facility] [address] [address] [address] Manuel Coffey Anion gap [Moles/Vol] 5.2 mmol/L Normal [facility] Comment on above: Performed By: #### T SH, LIPID, T7, CMP #### [facility] [address] [address] [address] Manuel Coffey AST [Catalytic activity/Vol] 13 U/L Critically low 15-37 [facility] Comment on above: Performed By: #### T SH, LIPID, T7, CMP #### [facility] [address] [address] [address] Manuel Coffey Bilirubin [Mass/Vol] 0.3 mg/dL Normal 0.2-1.0 [facility] Comment on above: Performed By: #### T SH, LIPID, T7, CMP #### [facility] [address] [address] [address] Manuel Coffey Calcium [Mass/Vol] 9.1 mg/dL Normal 8.5-10.1 [facility] Comment on above: Performed By: #### T SH, LIPID, T7, CMP #### [facility] [address] [address] [address] Manuel Coffey Chloride [Moles/Vol] 102 mmol/L Normal 98-[address] [facility] Comment on above: Performed By: #### T SH, LIPID, T7, CMP #### [facility] [address] [address] [address] Manuel Coffey CO2 [Moles/Vol] 33.4 mmol/L Critically high 21.0-32.0 [facility] Comment on above: Performed By: #### T SH, LIPID, T7, CMP #### [facility] [address] [address] [address] Manuel Coffey Creatinine [Mass/Vol] 0.73 mg/dL Normal 0.55-1.02 [facility] Comment on above: Performed By: #### T SH, LIPID, T7, CMP #### [facility] [address] [place] [address] Dr. Manuel Coffey EGFR-AF NORWEGIAN >60 Normal >=60 [facility] Comment on above: Performed By: #### T SH, LIPID, T7, CMP #### [facility] [address] [place] [address] Dr. Manuel Coffey EGFR-NON AF NORWEGIAN >60 Normal >=60 [facility] Comment on above: Performed By: #### T SH, LIPID, T7, CMP #### [facility] [address] [place] [address] Dr. Manuel Coffey Globulin (S) [Mass/Vol] 3.7 g/dL Normal [facility] Comment on above: Performed By: #### T SH, LIPID, T7, CMP #### [facility] [address] [place] [address] Dr. Manuel Coffey Glucose [Mass/Vol] 95 mg/dL Normal 74-106 [facility] Comment on above: Performed By: #### T SH, LIPID, T7, CMP #### [facility] [address] [place] [address] Dr. Manuel Coffey Potassium [Moles/Vol] 4.6 mmol/L Normal 3.5-5.1 [facility] Comment on above: Performed By: #### T SH, LIPID, T7, CMP #### [facility] [address] [place] [address] Dr. Manuel Coffey Protein [Mass/Vol] 7.6 g/dL Normal 6.4-8.2 [facility] Comment on above: Performed By: #### T SH, LIPID, T7, CMP #### [facility] [address] [place] [address] Dr. Manuel Coffey Sodium [Moles/Vol] 136 mmol/L Normal 136-145 [facility] Comment on above: Performed By: #### T SH, LIPID, T7, CMP #### [facility] [address] [place] [address] Dr. Manuel Coffey Urea nitrogen [Mass/Vol] 8.0 mg/dL Normal 7.0-18.0 [facility] Comment on above: Performed By: #### T SH, LIPID, T7, CMP #### [facility] [address] [address] [address] Manuel Coffey Urea nitrogen/Creatinine [Mass ratio] 11.0 mg/mg Normal [facility] Comment on above: Performed By: #### T SH, LIPID, T7, CMP #### [facility] [address] [address] [address] Manuel Coffey TSHon 01-18-2022 TSH 4.105 uIU/mL Critically high 0.358-3.740 [facility] Comment on above: Performed By: #### T SH, LIPID, T7, CMP #### [facility] [address] [place] [address] Dr. Manuel Coffey Covid-19 PCR ([facility])on 11-12 SARS-CoV-2 (COVID-19) RNA SHERRELL+probe Ql (Unsp spec) Not detected Normal NOT DETECTED [facility] Comment on above: Result Comment: This test is not yet approved or cleared by the [place] FDA. When there are no FDA-approved or cleared tests available, and other criteria are met, FDA can make tests available under an emergency access mechanism called an Emergency Use Authorization (EUA). The EUA for this test is supported by the [place] of Health and Human Service's (HHS's) declaration [...] consistent with SARS-CoV-2. Performed By: #### 4 [id number] #### [facility] [address] [place] [address] Dr. Manuel Coffey PAP ACOG PANEL 2: 30 to 65on 05-12-2021 . . Normal [facility] Comment on above: Result Comment: Perf ormed at: WB Performed By: #### 4 [id number] #### [facility] [address] [place] [address] Dr. Manuel Coffey Age Gdln ACOG Testing 30-65 [facility] Comment on above: Performed By: #### 4 [id number] #### [facility] [address] [place] [address] Dr. Manuel Coffey DIAGNOSIS: Comment [facility] Comment on above: Result Comment: NEGA TIVE FOR INTRAEPITHELIAL LESION OR MALIGNANCY. Performed at: WB Performed By: #### 4 [id number] #### [facility] [address] [place] [address] Dr. Manuel Coffey HPV Aptima Negative Normal Negative [facility] Comment on above: Result Comment: This nucleic acid amplification test detects fourteen high-risk HPV types (16,18,31,33,35,39,45,51,52,56,58,59,66,68) without differentiation. Performed at: =G Performed By: #### 4 [id number] #### [facility] [address] [place] [address] Dr. Manuel Coffey Methodology: Comment [facility] Comment on above: Result Comment: This liquid based ThinPrep(R) pap test was screened with the use of an image guided system. Performed at: WB Performed By: #### 4 [id number] #### [facility] [address] [place] [address] Dr. Manuel Coffey Note: Comment Normal [facility] Comment on above: Result Comment: The Pap smear is a screening test designed to aid in the detection of premalignant and malignant conditions of the uterine cervix. It is not a diagnostic procedure and should not be used as the sole means of detecting cervical cancer. Both false-positive and false-negative reports do occur. . Performed at: WB Performed By: #### 4 [id number] #### [facility] [address] [place] [address] Dr. Manuel Coffey Performed by: Comment Normal [facility] Comment on above: Result Comment: Katrina Fuller, Pearl Hand (ASCP) Performed at: WB Performed By: #### 4 [id number] #### [facility] [address] [address] [address] Manuel Coffey Specimen adequacy: Comment Normal [facility] Comment on above: Result Comment: Sati sfactory for evaluation. Endocervical and/or squamous metaplastic cells (endocervical component) are present. Performed at: WB Performed By: #### 4 [id number] #### [facility] [address] [address] [address] Manuel Coffey Covid-19 PCR ([facility])on SARS-CoV-2 (COVID-19) RNA SHERRELL+probe Ql (Unsp spec) Detected Critically abnormal NOT DETECTED [facility] Comment on above: Result Comment: This test is not yet approved or cleared by the [place] FDA. When there are no FDA-approved or cleared tests available, and other criteria are met, FDA can make tests available under an emergency access mechanism called an Emergency Use Authorization (EUA). The EUA for this test is supported by the [place] of Health and Human Service's (HHS's) declaration [...] longer be used). Performed By: #### 4 [id number] #### [facility] [address] [place] [address] Dr. Manuel Coffey INFLUENZA A AND B AGon 04-18 INFLUANEGH SEE BELOW Normal [facility] Comment on above: Result Comment: Nega tive for Flu A protein angiten. Infection due to Flu A cannot be ruled out. Flu A angiten in the sample may be below the detection limit of the test. Performed By: #### I NFLUAB #### [facility] [address] [place], [place] [id number] Dr. Manuel Coffey [facility] SEE BELOW Normal [facility] Comment on above: Result Comment: Nega tive for Flu B protein antigen. Infection due to Flu B cannot be ruled out. Flu B antigen in the sample may be below the detection limit of the test. Performed By: #### I NFLUAB #### [facility] [address] [place] [address] Dr. Manuel Coffey INFLUENZA A AG Negative Normal NEGATIVE SEE COMMENT [facility] Comment on above: Performed By: #### I NFLUAB #### [facility] [address] [place] [address] Dr. Manuel Coffey INFLUENZA B AG Negative Normal NEGATIVE SEE COMMENT [facility] Comment on above: Performed By: #### I NFLUAB #### [facility] [address] [place] [address] Dr. Manuel Coffey INTERNAL CONTROLS Within Normal Limits Normal Wi thin Normal Limits [facility] Comment on above: Performed By: #### I NFLUAB #### [facility] [address] [place] [address] Dr. Manuel Coffey Patient Letter FTon 2019 Patient Letter [facility] November 18, 2019 AL[address] [place] [address] ALFREDO WHALEY 1980 Dear Alfredo, This is a SECOND ATTEMPT to remind you that you are due for an appointment with Dr. Brand or Dr. Wilks. Please call [facility] at [phone] to schedule an appointment at your earliest convenience. Thank you, [facility] Reminderson 11-18-2019 Reminders - From: Akshat Cardoso To: [facility] - Reminders/Recalls; Sent: 06/10/2019 11:15:40 EST Show up: 10/13/2019 11:15:00 EDT Subject: 6 month recall November 2019 Due Date/Time: 10/17/2019 11:15:00 EDT Reminder/Recall Dr. Brand 6 month f/u 12/09/2019 First Recall Letter Second recall Letter [facility] Reminderson 03-15-2019 Reminders - From: Arely Sausage MixerAlfredo To: [facility] - Reminders/Recalls; Sent: 12/25/2018 13:40:20 EDT Show up: 03/14/2019 13:40:00 EST Subject: 2019 RECALL Due Date/Time: 05/13/2019 13:40:00 EST Reminder/Recall FOLLOW UP [address] BRAND DUE: 05/13/2019 pt coming in [facility] 17 [facility] Encounters Encounter Date Encounter Type Care [...] :H1 Payers Date Payer Category Payer Unknown [id number] [id number]. [id number] 1980 Unknown [id number] 05.30.84 [id number] 1980 Unknown [id number] 05.30.84 [id number] 1980 Unknown [id number] 1980 Unknown [id number] 1980 Unknown [id number] 1957 Unknown [id number] Clinical Note 01-18-2022 Note Date & Type Note Facility 01-18-2022 Note PROCEDURE: XR SHOULD ER RT 2V or > HISTORY: Pain of right shoulder joint COMPARISON: None. FINDINGS: BONES:No fracture, acute abnormality, or significant arthropathy. SOFT TISSUES:No visible soft tissue swelling. EFFUSION:None visible. OTHER: Negative. IMPRESSION: 1. No acute bone abnormality or significant degenerative changes. Electronically authenticated by: SANDRA CADET Date: 2022-01-18 11:19 [facility] Summary Purpose Family History No Family History Records FoundNo Family History Records Found Advance Directives No Advanced Directives Records FoundNo Advanced Directives Records Found Additional Source Comments INFORMATION SOURCE (unrecogn ized section and content) DATE CREATED AUTHOR 11/19/2019 [facility] DATE CREATED AUTHOR AUTHOR'S ORGANIZ ATION 03/23/2022 [facility] FOR RECORDS PERTAINING TO PATIENTS WHO ARE [...] BE BASED ON THE PRIMARY CLINICAL RECORDS. [employer] [facility] provides no warranty or guarantee of the accuracy or completeness of information in this document.
[2023-06-18 12:49] LABS: Free T3 4.65 pg/mL (2.18-3.98); Thyroid Stimulating Hormone 1.428 uIU/mL (0.358-3.740)
== END 2023-06-18 11:06 | disposition home or self-care (01) ==
LOC: LAB 11:07
PROVIDERS: PCP Family Medicine; Visit Provider Family Medicine
DX: E03.9 Hypothyroidism, unspecified (principal)
CPT/HCPCS: 36415; 84436; 84443; 84481

== ENCOUNTER 2024-08-19 12:38 | Outpatient (OUT) | payer BC, SELFPAY ==
[2024-08-19 13:10] LABS: Basophils Percent Auto 0.2 % (0.2-2.0); Eosinophils Absolute Auto 0.1 10^3/uL (0.0-0.7); Eosinophils Percent Auto 2.2 % (0.9-7.0); Hematocrit 37.3 % (36.0-48.0); Immature Granulocytes Abs Auto 0.02 10^3/uL (0.00-0.03); Immature Granulocytes Pct Auto 0.3 % (0.0-0.5); Lymphocytes Absolute Auto 1.6 10^3/uL (1.2-3.8); Lymphocytes Percent Auto 26.6 % (20.5-60.0); Mean Corpuscular HGB Conc 32.2 g/dL (29.9-35.2); Mean Corpuscular Hemoglobin 24.2 pg (26.7-34.0); Mean Corpuscular Volume 75.2 fL (81.0-99.0); Mean Platelet Volume 9.2 fL (9.5-13.5); Monocytes Absolute Auto 0.3 10^3/uL (0.3-0.8); Monocytes Percent Auto 5.1 % (1.7-12.0); Neutrophils Percent Auto 65.6 % (43.0-75.0); Platelet Count 301 10^3/uL (150-450); Red Blood Count 4.96 10^6/uL (4.20-5.40); Red Cell Distribution Width 16.9 % (11.0-15.0)
[2024-08-19 13:36] LABS: Estimated Average Glucose 123 mg/dL; Glycohemoglobin A1C 5.9 % (4.5-6.2)
[2024-08-19 14:43] LABS: Alanine Aminotransferase 25 U/L (14-59); Albumin Globulin Ratio 1.1; Albumin Level 3.7 g/dL (3.4-5.0); Alkaline Phosphatase 70 U/L (46-116); Aspartate Amino Transferase 16 U/L (15-37); BUN Creatinine Ratio 13.6; Bilirubin Total 0.2 mg/dL (0.2-1.0); Calcium 9.1 mg/dL (8.5-10.1); Carbon Dioxide 31.1 mmol/L (21.0-32.0); Chloride 102 mmol/L (98-107); Cholesterol 198 mg/dL (<=200); Estimated GFR (African America >60 (>=60 mL/min/1.73m^2); Estimated GFR (Non-African Ame >60 (>=60 mL/min/1.73m^2); Free T3 3.98 pg/mL (2.18-3.98); Globulin 3.5 g/dL; Glucose 92 mg/dL (74-106); HDL Cholesterol 65 mg/dL (40-60); Potassium 4.1 mmol/L (3.5-5.1); Sodium 138 mmol/L (136-145); Thyroid Stimulating Hormone 1.365 uIU/mL (0.358-3.740); Total Protein 7.2 g/dL (6.4-8.2); Triglycerides 55 mg/dL (<=150)
--- NOTE | 2024-08-19 15:34 | MM_ITS ---
Patient Name: ALFREDO WHALEY MR#: [id number] : 1980 Exam Date: 08/19/2024 Ordering Doctor: DR LUCY CARTER . RADIOLOGY REPORT PROCEDURE: MM TOMOSYNTHESIS SCREENING BI COMPARISON: None. INDICATIONS: Screening Calculator Name NCI Breast Cancer Risk Assessment Tool 5 Year Breast Cancer Risk 0.70% Lifetime Breast Cancer Risk 11.00% Personal Breast Cancer No Personal Ovarian Cancer No Treatments None Family Cancers Mother with colon cancer at age 50; Grandmother-maternal with colon cancer at age ~80; Grandmother-paternal with melanoma cancer at age ~70. LOCATION: [facility] BREAST COMPOSITION: There are scattered areas of fibroglandular density. FINDINGS: DIAGNOSTIC CATEGORY 1--NEGATIVE. RIGHT BREAST: No significant suspicious finding. LEFT BREAST: No significant suspicious finding. RECOMMENDATIONS: ROUTINE MAMMOGRAM AND CLINICAL EVALUATION IN 12 MONTHS. PLEASE NOTE: A NORMAL MAMMOGRAM DOES NOT EXCLUDE THE POSSIBILITY OF BREAST CANCER. A CLINICALLY SUSPICIOUS PALPABLE LUMP SHOULD BE BIOPSIED. Dictated by: Melo Perkins DO on 08/20/2024 at 13:22 Approved by: Melo Perkins DO on 08/20/2024 at 13:24
[2024-08-20 06:09] LABS: Insulin 11.6 uIU/mL (2.6-24.9)
== END 2024-08-19 12:39 | disposition home or self-care (01) ==
LOC: MAMMO 12:39
PROVIDERS: PCP Family Medicine; Visit Provider Family Medicine
DX: Z00.00 Encounter for general adult medical examination without abnormal findings (principal); Z12.31 Encounter for screening mammogram for malignant neoplasm of breast; Z80.0 Family history of malignant neoplasm of digestive organs; Z80.8 Family history of malignant neoplasm of other organs or systems
CPT/HCPCS: 36415; 77063; 77067; 80053; 80061; 83036; 83525; 84436; 84443; 84481; 85025

== ENCOUNTER 2024-12-20 17:06 | Outpatient (RCR) | payer BC, SELFPAY | END 2024-12-21 09:35 | disposition home or self-care (01) | LOC: PT 17:06 | PROVIDERS: PCP Family Medicine; Visit Provider Family Medicine | DX: R42 Dizziness and giddiness (principal) | CPT/HCPCS: 95992; 97161 ==